=== PATIENT | male | born 1995 | race Caucasian/White ===

== ENCOUNTER 2018-04-19 05:04 | Emergency (ER) | payer OTHER ==
[2018-04-19] MEDS ORDERED: ONDANSETRON (ODT) 4 MG TAB ODT (07:47)
[2018-04-19] MEDS: IBUPROFEN 600 MG TAB PO (07:52)
== END 2018-04-19 08:50 | disposition home or self-care (01) ==
LOC: E/R 05:04
DX: S43.004A Unspecified dislocation of right shoulder joint, initial encounter (principal); X58.XXXA Exposure to other specified factors, initial encounter; Y92.9 Unspecified place or not applicable
CPT/HCPCS: 23650; 99283-25

== ENCOUNTER 2019-03-31 18:47 | Emergency (ER) | payer SELFPAY, OTHER ==
[2019-03-31] MEDS: morphine 4 MG/ML VIAL IV (21:49)
[2019-03-31] MEDS ORDERED: ONDANSETRON 4 MG INJ (22:18)
[2019-03-31] MEDS: ONDANSETRON 4 MG INJ IV (22:19)
[2019-03-31] MEDS: FENTAnyl 50 MCG/ML VIAL IV (22:25)
== END 2019-03-31 23:34 | disposition home or self-care (01) ==
LOC: FTE 18:47 → E/R 23:34
DX: S43.004A Unspecified dislocation of right shoulder joint, initial encounter (principal); X58.XXXA Exposure to other specified factors, initial encounter; Y92.310 Basketball court as the place of occurrence of the external cause
CPT/HCPCS: 23650; 73030-RT; 96374; 96375; 99284-25